=== PATIENT | female | born 1975 | race Hispanic/Latino ===

== ENCOUNTER 2021-06-18 16:30 | Emergency (ER) | payer MEDICARE, MEDICAID ==
[~2021-06-18 16:30] MED LIST: Iopamidol 370 76% 100 ML VIAL ONE
[2021-06-18 17:16] LABS: #Basophils 0.1 thou/uL (0.0-0.2); #Eosinphils 1.2 thou/uL (0.0-0.7); #Lymphocytes 2.8 thou/uL (1.20-3.40); #Monocytes 0.4 thou/uL (0.11-0.59); #Neutrophils 4.1 thou/uL (1.40-6.50); %Basophils 1.4 % (0.0-1.0); %Eosinophils 13.5 % (0.0-10.0); %Lymphocytes 32.7 % (21.0-51.0); %Neutrophils 47.4 % (42.0-75.0); Hemoglobin 15.2 g/dL (12.0-16.0); Mean Corpuscular HGB CONC 30.5 g/dL (32.0-36.0); Mean Corpuscular Hemoglobin 26.9 pg (27.0-31.0); Mean Corpuscular Volume 88.3 fL (78.0-98.0); Mean Platelet Volume 7.8 fL (7.4-10.4); Platelet Count 395 thou/uL (130-400); RBC Distribution Width 13.9 % (11.5-14.5); Red Blood Cell (RBC) Count 5.65 mill/uL (4.20-5.40); White Blood Cell (WBC) Count 8.6 thou/uL (4.8-10.8)
[2021-06-18 17:28] LABS: ALT (SGPT) 42 U/L (8-55); AST (SGOT) 31 U/L (5-34); Albumin 4.6 g/dL (3.5-5.0); Alkaline Phosphatase 138 U/L (40-110); Anion Gap 13 mmol/L (10-20); BUN (Urea Nitrogen) 9 mg/dL (7.0-18.7); Bilirubin, Total 0.5 mg/dL (0.2-1.2); Calc. Creatinine Clearance 0 mL/min (70-130); Calcium 9.9 mg/dL (7.8-10.44); Carbon Dioxide 27 mmol/L (22-29); Chloride 103 mmol/L (98-107); Globulin 4.1 g/dL (2.4-3.5); Glucose 88 mg/dL (70-105); Potassium 3.8 mmol/L (3.5-5.1); Protein, Total 8.7 g/dL (6.0-8.3); Sodium 139 mmol/L (136-145)
[2021-06-18] MEDS ORDERED: Acetaminophen/Codeine 30-300mg Tablet ONE (19:11)
[2021-06-18] MEDS ORDERED: Albuterol Sulfate 2.5 mg/0.5 ml Neb ONE (19:11)
[2021-06-18] MEDS ORDERED: predniSONE 20 MG TAB ONE (19:12)
[2021-06-18] MEDS ORDERED: Azithromycin 250 MG TAB ONE (21:06)
== END 2021-06-18 21:20 | disposition home or self-care (01) ==
LOC: NAV ERS 16:30
DX: J20.9 Acute bronchitis, unspecified (principal); E03.9 Hypothyroidism, unspecified; Z79.899 Other long term (current) drug therapy
CPT/HCPCS: 71045; 71275; 80053; 83605; 83880; 84484; 85025; 85379; 93005; 94760; J7512; J7611; J7620; Q9967

== ENCOUNTER 2021-06-22 10:22 | Emergency (ER) | payer MEDICARE, MEDICAID ==
[2021-06-22 11:22] LABS: #Monocytes 0.4 thou/uL (0.11-0.59); #Neutrophils 2.2 thou/uL (1.40-6.50); %Basophils 0.5 % (0.0-1.0); %Eosinophils 0.5 % (0.0-10.0); Hemoglobin 14.7 g/dL (12.0-16.0); Mean Corpuscular Hemoglobin 26.4 pg (27.0-31.0); Mean Platelet Volume 7.4 fL (7.4-10.4); Platelet Count 311 thou/uL (130-400); RBC Distribution Width 14.4 % (11.5-14.5); Red Blood Cell (RBC) Count 5.57 mill/uL (4.20-5.40); White Blood Cell (WBC) Count 4.6 thou/uL (4.8-10.8)
[2021-06-22 11:41] LABS: ALT (SGPT) 27 U/L (8-55); AST (SGOT) 24 U/L (5-34); Albumin 4.1 g/dL (3.5-5.0); Alkaline Phosphatase 101 U/L (40-110); Anion Gap 16 mmol/L (10-20); BUN (Urea Nitrogen) 10 mg/dL (7.0-18.7); Bilirubin, Total 0.2 mg/dL (0.2-1.2); Calc. Creatinine Clearance 0 mL/min (70-130); Calcium 8.8 mg/dL (7.8-10.44); Carbon Dioxide 25 mmol/L (22-29); Chloride 101 mmol/L (98-107); Globulin 3.5 g/dL (2.4-3.5); Glucose 109 mg/dL (70-105); Potassium 3.7 mmol/L (3.5-5.1); Protein, Total 7.6 g/dL (6.0-8.3); Sodium 138 mmol/L (136-145)
[2021-06-22 13:43] LABS: SARS-CoV-2 NAA Rapid Test DETECTED (NotDetected)
[2021-06-22] MEDS ORDERED: Acetaminophen/Codeine 30-300mg Tablet ONE (13:48)
[2021-06-22] MEDS ORDERED: Ondansetron PF 4 MG/2 ML Vial ONE (15:30)
[2021-06-22] MEDS ORDERED: Sodium Chloride 0.9% 1,000 ML ONE (17:38)
[2021-06-22] MEDS ORDERED: Benzonatate 100 MG CAP ONE (18:06)
[2021-06-22] MEDS ORDERED: Dexamethasone 4 mg/ml Vial ONE (18:06)
[2021-06-22 19:17] LABS: Bilirubin Negative (Negative); Blood, Urine Negative (Negative); Clarity Clear (Clear); Glucose, Urine (Dipstick) Negative (Negative); Ketone, Urine Negative (Negative); Leukocyte Negative (Negative); Nitrite Negative (Negative); Protein, Urine (Dipstick) Trace mg/dL (Neg-Trace); Urobilinogen 0.2 mg/dL (Less than 2); pH, Urine 5.5 (5.0-9.0)
[2021-06-22 19:21] LABS: Specific Gravity, Urine 1.028 (1.002-1.036)
[2021-06-22] MEDS ORDERED: Acetaminophen 325 MG TAB ONE (21:34)
[2021-06-23] MEDS ORDERED: Ondansetron PF 4 MG/2 ML Vial ONE ×2 (01:34→09:31)
[2021-06-23] MEDS ORDERED: Dexamethasone 4 MG TAB ONE (08:23)
[2021-06-23] MEDS ORDERED: Dexamethasone 4 mg/ml Vial ONE (08:24)
[2021-06-23] MEDS ORDERED: LINZESS 290 MCG PO SCH (09:00)
[2021-06-23] MEDS ORDERED: Levothyroxine Sodium 100 MCG TAB PO SCH (09:00)
[2021-06-23] MEDS ORDERED: Sodium Chloride 0.9% 1,000 ML ONE ×2 (11:05→13:10)
[2021-06-23] MEDS ORDERED: Budesonide 0.5 MG/2 ML NEB ONE (11:16)
[2021-06-23] MEDS ORDERED: Acetaminophen 325 MG TAB ONE (11:16)
[2021-06-23] MEDS ORDERED: Albuterol Sulfate 2.5 mg/0.5 ml Neb ONE (11:16)
[2021-06-23] MEDS ORDERED: traMADol HCl 50 MG TAB ONE (14:14)
== END 2021-06-23 17:01 | disposition short-term general hospital (02) ==
LOC: NAV ERS 10:22
DX: U07.1 COVID-19 (principal); J12.82 Pneumonia due to coronavirus disease 2019; E03.9 Hypothyroidism, unspecified; K31.84 Gastroparesis
CPT/HCPCS: 71045; 80053; 81003; 83605; 83880; 84484; 85025; 93005; 94760; U0002; 36415; 96374; 96375; 96376; J1100; J2405; J7050; J7611; J7620; J7626; J8540

== ENCOUNTER 2023-04-10 20:33 | Emergency (ER) | payer MEDICARE, MEDICAID ==
[2023-04-10] MEDS ORDERED: Sodium Chloride 0.9% 1,000 ML ONE (21:07)
[2023-04-10] MEDS ORDERED: diphenhydrAMINE 50 MG/ML VIAL ONE ×2 (21:07→23:14)
[2023-04-10] MEDS ORDERED: methylPREDNISolone Sod Succ 40 MG VIAL ONE (21:08)
[2023-04-10] MEDS ORDERED: Ondansetron PF 4 MG/2 ML Vial ONE (21:08)
[2023-04-10] MEDS ORDERED: Ketorolac Tromethamine 30 MG/ML VIAL ONE (22:22)
[2023-04-10] MEDS ORDERED: Magnesium 2 GM/50 ML BAG (IN WATER) ONE (22:22)
[2023-04-10] MEDS ORDERED: Valproate Sodium 500 MG/5 ML VIAL ONE (23:13)
[2023-04-10] MEDS ORDERED: Sodium Chloride 0.9% 250 ML 250 ML ONE (23:13)
[2023-04-11] MEDS ORDERED: Sodium Chloride 0.9% 100 ML ONE (00:38)
[2023-04-11] MEDS ORDERED: KETAMINE 100 MG/ML (5ML VIAL) ONE (00:38)
[2023-04-11] MEDS ORDERED: Sodium Chloride 0.9% 1,000 ML ONE (00:51)
[2023-04-11] MEDS ORDERED: Ondansetron PF 4 MG/2 ML Vial ONE (01:48)
[2023-04-11] MEDS ORDERED: fentaNYL 50 mcg/mL 1 mL Vial ONE (01:48)
[2023-04-11 02:02] LABS: #Basophils 0.1 thou/uL (0.0-0.2); #Lymphocytes 1.1 thou/uL (1.20-3.40); #Monocytes 0.1 thou/uL (0.11-0.59); #Neutrophils 6.9 thou/uL (1.40-6.50); %Basophils 0.6 % (0.0-1.0); %Eosinophils 0.1 % (0.0-10.0); %Lymphocytes 13.4 % (21.0-51.0); %Neutrophils 84.9 % (42.0-75.0); Hemoglobin 13.6 g/dL (12.0-16.0); Mean Corpuscular HGB CONC 31.8 g/dL (32.0-36.0); Mean Corpuscular Hemoglobin 27.2 pg (27.0-31.0); Mean Corpuscular Volume 85.5 fl (78.0-98.0); Mean Platelet Volume 7.5 fL (7.4-10.4); Platelet Count 298 10x3/uL (130-400); RBC Distribution Width 13.6 % (11.5-14.5); Red Blood Cell (RBC) Count 5.01 mill/uL (4.20-5.40); White Blood Cell (WBC) Count 8.1 10x3/uL (4.8-10.8)
[2023-04-11 02:21] LABS: ALT (SGPT) 45 U/L (8-55); AST (SGOT) 34 U/L (5-34); Albumin 4.3 g/dL (3.5-5.0); Alkaline Phosphatase 110 U/L (40-110); Anion Gap 16 mmol/L (10-20); BUN (Urea Nitrogen) 11 mg/dL (7.0-18.7); Bilirubin, Total 0.2 mg/dL (0.2-1.2); Calc. Creatinine Clearance 0 mL/min (70-130); Calcium 8.7 mg/dL (7.8-10.44); Carbon Dioxide 21 mmol/L (22-29); Chloride 107 mmol/L (98-107); Estimated GFR 93; Globulin 3.4 g/dL (2.4-3.5); Glucose 137 mg/dL (70-105); Protein, Total 7.7 g/dL (6.0-8.3); Sodium 140 mmol/L (136-145)
== END 2023-04-11 03:30 | disposition short-term general hospital (02) ==
LOC: NAV ERS 20:33
DX: G43.919 Migraine, unspecified, intractable, without status migrainosus (principal); E03.9 Hypothyroidism, unspecified; Z79.899 Other long term (current) drug therapy
CPT/HCPCS: 70450; 86140; 96361; 96365; 96367; 96375; 96376; 99285; J3010; 36415; 80053; 84443; 85025; J1200; J1885; J2405; J2920; J3475; J7050

== ENCOUNTER 2024-03-04 15:26 | Emergency (ER) | payer OTHER ==
[2024-03-04 16:17] LABS: Prothrombin Time 13.6 sec (12.0-14.7)
[2024-03-04 16:18] LABS: PTT 38.3 sec (22.9-36.1)
[2024-03-04 16:25] LABS: Hematocrit 43.4 % (36.0-47.0); Mean Corpuscular HGB CONC 29.9 g/dL (32.0-36.0); Mean Corpuscular Hemoglobin 26.3 pg (27.0-31.0); Mean Corpuscular Volume 87.8 fl (78.0-98.0); RBC Distribution Width 13.4 % (11.5-14.5); Red Blood Cell (RBC) Count 4.94 mill/uL (4.20-5.40); White Blood Cell (WBC) Count 6.8 10x3/uL (4.8-10.8)
[2024-03-04 16:26] LABS: #Basophils 0.1 thou/uL (0.0-0.2); #Eosinphils 0.2 thou/uL (0.0-0.7); #Lymphocytes 2.4 thou/uL (1.20-3.40); #Monocytes 0.4 thou/uL (0.11-0.59); #Neutrophils 3.7 thou/uL (1.40-6.50); %Basophils 1.2 % (0.0-1.0); %Eosinophils 2.8 % (0.0-10.0); %Lymphocytes 35.1 % (21.0-51.0); %Monocytes 5.8 % (0.0-10.0); %Neutrophils 55.2 % (42.0-75.0); ALT (SGPT) 26 U/L (8-55); AST (SGOT) 20 U/L (5-34); Albumin 4.4 g/dL (3.5-5.0); Alkaline Phosphatase 103 U/L (40-110); Anion Gap 13 mmol/L (10-20); BUN (Urea Nitrogen) 12 mg/dL (7.0-18.7); Bilirubin, Total 0.3 mg/dL (0.2-1.2); Calc. Creatinine Clearance 0 mL/min (70-130); Calcium 9.3 mg/dL (7.8-10.44); Carbon Dioxide 26 mmol/L (22-29); Chloride 106 mmol/L (98-107); Estimated GFR 91; Globulin 3.2 g/dL (2.4-3.5); Glucose 95 mg/dL (70-105); Manual Diff?? NO; Platelet Count 304 10x3/uL (130-400); Protein, Total 7.6 g/dL (6.0-8.3); Sodium 141 mmol/L (136-145)
[2024-03-04 17:02] LABS: Bilirubin Negative (Negative); Blood, Urine Trace (Negative); Clarity Clear (Clear); Glucose, Urine (Dipstick) Negative (Negative); Ketone, Urine Negative (Negative); Leukocyte Negative (Negative); Nitrite Negative (Negative); Protein, Urine (Dipstick) Negative (Neg-Trace); Specific Gravity, Urine 1.025 (1.005-1.030); Urobilinogen 0.2 mg/dL (Less than 2); pH, Urine 6.5 (5.0-9.0)
[2024-03-04] MEDS ORDERED: Pantoprazole 40 MG VIAL ONE (17:03)
[2024-03-04] MEDS ORDERED: fentaNYL 50 mcg/mL 1 mL Vial ONE ×2 (17:03→18:46)
[2024-03-04] MEDS ORDERED: Ondansetron PF 4 MG/2 ML Vial ONE (17:03)
[2024-03-04 17:05] LABS: CAUTI Indications for Culture Pelvic or flank pain; RBC/HPF 0-3 HPF (0-3); WBC/HPF 0-3 HPF (0-3)
[2024-03-04 17:07] LABS: Urine Culture Reflex No No
[2024-03-04] MEDS ORDERED: LevoFLOXacin 750 mg/D5W 150 ml Premix Bag ONE (17:50)
[2024-03-04] MEDS ORDERED: traMADol HCl 50 MG TAB ONE (18:47)
== END 2024-03-04 19:39 | disposition home or self-care (01) ==
LOC: NAV ERS 15:26
DX: K57.32 Diverticulitis of large intestine without perforation or abscess without bleeding (principal); K31.84 Gastroparesis; G40.909 Epilepsy, unspecified, not intractable, without status epilepticus; E03.9 Hypothyroidism, unspecified; Z79.899 Other long term (current) drug therapy
CPT/HCPCS: 74177; 80053; 81001; 85025; 85610; 85730; J3010; 82274; 96365; 96366; 96375; 96376; C9113; J1956; J2405; Q9967

== ENCOUNTER 2024-07-16 21:59 | Emergency (ER) | payer OTHER ==
[2024-07-16] MEDS ORDERED: Aspirin Chewable 81 MG TAB ONE (22:18)
[2024-07-16 22:47] LABS: ALT (SGPT) 41 U/L (8-55); AST (SGOT) 29 U/L (5-34); Albumin 4.3 g/dL (3.5-5.0); Alkaline Phosphatase 149 U/L (40-110); Anion Gap 18 mmol/L (10-20); BUN (Urea Nitrogen) 14 mg/dL (7.0-18.7); Bilirubin, Total 0.6 mg/dL (0.2-1.2); Calc. Creatinine Clearance 0 mL/min (70-130); Calcium 9.8 mg/dL (7.8-10.44); Carbon Dioxide 22 mmol/L (22-29); Chloride 102 mmol/L (98-107); Estimated GFR 83; Globulin 4.1 g/dL (2.4-3.5); Glucose 98 mg/dL (70-105); Potassium 3.6 mmol/L (3.5-5.1); Protein, Total 8.4 g/dL (6.0-8.3); Sodium 138 mmol/L (136-145)
== END 2024-07-17 00:01 ==
LOC: NAV ERS 21:59
DX: R03.0 Elevated blood-pressure reading, without diagnosis of hypertension (principal); E03.9 Hypothyroidism, unspecified; F41.8 Other specified anxiety disorders
CPT/HCPCS: 71046; 71275; 80053; 83880; 84484; 85379; 93005; 99285; Q9967; 36415

== ENCOUNTER 2025-08-13 17:32 | Emergency (ER) | payer MEDICARE, MEDICAID ==
[2025-08-13] MEDS ORDERED: Aspirin Chewable 81 MG TAB ONE (17:51)
[2025-08-13] MEDS ORDERED: Nitroglycerin 0.4 MG TAB 1 EACH ONE (17:52)
[2025-08-13 18:02] LABS: #Basophils 0.1 thou/uL (0.0-0.2); #Eosinophils 0.2 thou/uL (0.0-0.7); #Lymphocytes 2.8 thou/uL (1.20-3.40); #Monocytes 0.4 thou/uL (0.11-0.59); #Neutrophils 4.2 thou/uL (1.40-6.50); %Basophils 1.0 % (0.0-1.0); %Eosinophils 3.0 % (0.0-10.0); %Lymphocytes 36.3 % (21.0-51.0); %Monocytes 5.5 % (0.0-10.0); %Neutrophils 54.2 % (42.0-75.0); Hematocrit 43.4 % (36.0-47.0); Hemoglobin 14.9 g/dL (12.0-16.0); Mean Corpuscular Hemoglobin 27.2 pg (27.0-31.0); Mean Corpuscular Volume 78.8 fl (78.0-98.0); Platelet Count 405 10x3/uL (130-400); Red Blood Cell (RBC) Count 5.50 mill/uL (4.20-5.40); White Blood Cell (WBC) Count 7.7 10x3/uL (4.8-10.8)
[2025-08-13 18:14] LABS: Troponin I 0.015 ng/mL (< 0.028)
[2025-08-13 18:15] LABS: ALT (SGPT) 35 U/L (Less than 34); AST (SGOT) 32 U/L (11-34); Albumin 4.5 g/dL (3.1-4.5); Alkaline Phosphatase 128 U/L (40-110); Anion Gap 17 mmol/L (10-20); BUN (Urea Nitrogen) 11 mg/dL (7.0-18.7); Bilirubin, Total 0.5 mg/dL (0.3-1.2); Calc. Creatinine Clearance 0 mL/min (70-130); Calcium 9.5 mg/dL (7.8-10.44); Carbon Dioxide 24 mmol/L (22-29); Chloride 101 mmol/L (98-107); Globulin 3.9 g/dL (2.4-3.5); Glucose 116 mg/dL (70-105); Lipase 57 U/L (8-78); Potassium 3.8 mmol/L (3.5-5.1); Sodium 138 mmol/L (136-145)
[2025-08-13] MEDS ORDERED: Lidocaine Viscous Sol 2% 15 ml UD Cup ONE (18:35)
[2025-08-13] MEDS ORDERED: Mag-Al Plus 1200/1200/120 MG (30 mL) UDCUP ONE (18:35)
[2025-08-13] MEDS ORDERED: Ketorolac Tromethamine 30 MG (1 mL) VIAL ONE (18:49)
[2025-08-13] MEDS ORDERED: Acetaminophen 500 MG TAB ONE (18:49)
[2025-08-13] MEDS ORDERED: Ondansetron PF 4 MG/2 ML Vial ONE (19:44)
[2025-08-13 20:56] LABS: Troponin I Less than 0.010 ng/mL (< 0.028)
[2025-08-13] MEDS ORDERED: cloNIDine 0.1 MG TAB ONE (21:12)
== END 2025-08-13 21:47 | disposition home or self-care (01) ==
LOC: NAV ERS 17:32
DX: R07.89 Other chest pain (principal); R03.0 Elevated blood-pressure reading, without diagnosis of hypertension; E03.9 Hypothyroidism, unspecified; Z79.899 Other long term (current) drug therapy; Z79.51 Long term (current) use of inhaled steroids; Z79.890 Hormone replacement therapy
CPT/HCPCS: 71046; 80053; 83690; 84443; 84484; 85025; 85379; 93005; 94760; 96374; 96375; 96376; J1885; J2272